=== PATIENT | female | born 1995 | race American Indian/Alaskan Native ===

== ENCOUNTER 2016-12-08 14:45 | Emergency (ER) | payer SELFPAY ==
[2016-12-08 15:21] VITALS: BP 130/83
--- NOTE | 2016-12-08 15:30 | Emergency Department Report ---
Chief Complaint: Abdominal Pain Stated Complaint: DIZZY/NAUSEA/LIGHTHEADED Time Seen by Provider: 12/08/16 15:23 - HPI History of Present Illness: 21-year-old -[place] female with no past medical history comes in for nausea and vomiting and left flank pain with dizziness that started 2 weeks ago. She reports that it has gotten worse so she came in today. She also states that she's been breaking out in sweats. She denies any fever was having chills. - Exam Vital Signs: Vital Signs 12/08/16 15:15 Temperature 98.3 F Pulse Rate 98 H Respiratory 18 Rate Blood Pressure 130/83 O2 Sat by Pulse 99 Oximetry Physical Exam: Alert and oriented 3 cardiovascular S1-S2 regular rate and rhythm respiratory clear to auscultation bilateral abdomen soft nontender nondistended bowel sounds appreciated MSE screening note: Focused history and physical exam performed. Due to findings the following was ordered: Diameter protocol ordered. He should be evaluated Main ER ED Disposition for MSE Condition: Stable Instructions: Abdominal Pain (ED)
[2016-12-08 17:35] LABS: Bacteria,Urine 1+ /HPF (Negative); Bilirubin,Urine NEG (Negative); Blood,Urine SM (Negative); Ketones,Urine NEG (Negative); Leukocyte Esterase,Urine LG (Negative); Mucus,Urine 2+ /HPF; Nitrite,Urine NEG (Negative); Urobilinogen,Urine < 2.0 mg/dL (<2.0)
--- NOTE | 2016-12-10 19:30 | ED Elopement Review ---
ED Pt Elopement review - Results review Lab results: Laboratory Tests 12/08/16 16:56 Urine Color Yellow Urine Turbidity Cloudy Urine pH 5.0 Ur Specific [place] 1.024 Urine Protein 30 mg/dl Urine Glucose (UA) Neg Urine Ketones Neg Urine Blood Sm Urine Nitrite Neg Ur Reducing Substances Not Reportable Urine Bilirubin Neg Urine Ictotest Not Reportable Urine Urobilinogen < 2.0 Ur Leukocyte Esterase Lg Urine WBC (Auto) 12.0 H Urine RBC (Auto) 7.0 U Epithel Cells (Auto) 24.0 H Urine Bacteria (Auto) 1+ Urine Mucus 2+ Urine HCG, Qual Negative - Call Back decision Pt Call Back Decision: Pt to F/U with PMD (patient has a urinary tract infection )
== END 2016-12-08 16:50 | disposition left against medical advice (07) ==
LOC: ED 14:45
DX: R11.2 Nausea with vomiting, unspecified (principal); R10.9 Unspecified abdominal pain; R42 Dizziness and giddiness; Z53.21 Procedure and treatment not carried out due to patient leaving prior to being seen by health care provider
CPT/HCPCS: 81001; 81025